=== PATIENT | male | born 1970 | race African-American/Black ===

== ENCOUNTER 2024-04-16 22:40 | Emergency (ER) | payer OTHER ==
[~2024-04-16] VITALS: Ht 172.7 cm; Wt 81.8 kg
[2024-04-16 22:59] VITALS: BP 141/49; PULSE 66; RESP 18; TEMP 98.2; O2SAT 100
[2024-04-16 23:32] LABS: BASOPHILS % (AUTO) 0.8 % (0.0-2.0); EOSINOPHILS % (AUTO) 4.1 % (1.0-6.0); HEMATOCRIT 43.6 % (41-53); HEMOGLOBIN 14.5 g/dL (13.5-17.5); LYMPHOCYTES # (AUTO) 1.9 K/uL (1.0-4.8); LYMPHOCYTES % (AUTO) 43.8 % (22.0-44.0); MEAN CORPUSCULAR HEMOGLOBIN 28.4 pg (26.0-34.0); MEAN CORPUSCULAR HGB CONC 33.2 G/dL (31.0-37.0); MEAN CORPUSCULAR VOLUME 86 fL (80-100); MONOCYTES # (AUTO) 0.5 K/uL (0.1-1.0); MONOCYTES % (AUTO) 10.7 % (2.0-9.0); NEUTROPHILS # (AUTO) 1.8 K/uL (1.8-7.7); NEUTROPHILS % (AUTO) 40.6 % (40.0-70.0); PLATELET COUNT (AUTO) 181 K/uL (150-450); RED BLOOD CELL COUNT(AUTO) 5.09 MIL/uL (4.50-5.90); RED CELL DISTRIBUTION WIDTH 14.9 % (11.5-14.5); WHITE BLOOD COUNT (AUTO) 4.4 K/uL (4.5-11.0)
[2024-04-16 23:34] LABS: ANION GAP 6 mmol/L (8-16); CALCIUM, TOTAL 8.7 mg/dL (8.8-10.5); CARBON DIOXIDE 29 mmol/L (22-29); CHLORIDE 106 mmol/L (98-107); CREATININE 1.07 mg/dL (0.60-1.30); GLOMERULAR FILTR. RATE CALC > 60 mL/min (>60); GLUCOSE,RANDOM 100 mg/dL (70-110); POTASSIUM 3.7 mmol/L (3.5-5.1); SODIUM SERUM 141 mmol/L (136-145); UREA NITROGEN, BLOOD 14 mg/dL (7-18)
[2024-04-17 01:53] LABS: COVID AG,FIA SOURCE NASAL SWAB
[2024-04-17] MEDS ORDERED: DOXY-354 PO (01:58)
[2024-04-17] MEDS ORDERED: GUAIFDM PO (01:58)
[2024-04-17] MEDS ORDERED: ACET-66 PO (01:58)
[2024-04-17] MEDS: CefTRIAXone SODIUM 1 GM/VIAL IM ONE (02:13)
[2024-04-17] MEDS: AZITHROMYCIN 500 MG TABLET PO ONE (02:13)
[2024-04-17] MEDS: ACETAMINOPHEN 500 MG TABLET PO ONE (02:13)
[2024-04-17] MEDS: LIDOCAINE/PF 1% 2 ML VIAL IM ONE (02:15)
[2024-04-17] MEDS: GuaiFENesin/D-METHORPHAN [SUGAR-FREE] 200-20MG/10 ML SYRUP UDCUP PO ONE (02:16)
[2024-04-17 02:51] LABS: INFLUENZA TYPE A NEGATIVE FOR TYPE A (NEGATIVE); INFLUENZA TYPE B NEGATIVE FOR TYPE B (NEGATIVE)
[2024-04-17 02:52] LABS: SARS-COV2 (COVID) ANTIGEN,FIA Negative (Negative)
== END 2024-04-17 03:09 | disposition home or self-care (01) ==
LOC: EMS 22:40
DX: S91.111A Laceration without foreign body of right great toe without damage to nail, initial encounter (principal); J06.9 Acute upper respiratory infection, unspecified; Z20.822 Contact with and (suspected) exposure to COVID-19; W20.8XXA Other cause of strike by thrown, projected or falling object, initial encounter; Y93.89 Activity, other specified; Y92.89 Other specified places as the place of occurrence of the external cause; Y99.8 Other external cause status
CPT/HCPCS: 99284; 87426; 80048; 85025; 87804; 36415; 96372; J0456; J0696; J3490